=== PATIENT | male | born 1975 | race Asian ===

== ENCOUNTER 2022-02-28 08:19 | Outpatient (CLI) | payer BC, SELFPAY ==
[2022-02-28 18:36] LABS: Alanine Aminotransferase 30 U/L (6-50); Albumin Level 4.5 g/dL (3.5-5.1); Alkaline Phosphatase 78 U/L (38-126); Anion Gap 15 mmol/L (8-16); Aspartate Amino Transferase 77 U/L (17-59); Bilirubin,Total 0.8 mg/dL (0.2-1.3); Blood Urea Nitrogen 14 mg/dL (9-20); Calcium 9.2 mg/dL (8.4-10.2); Carbon Dioxide 25 mmol/L (22-30); Chloride 102 mmol/L (98-107); Cholesterol 199 mg/dL (0-200); Estimated Glomerular Filt Rate > 60; Glucose 95 mg/dL (65-110); HDL Direct 41 mg/dL; Potassium 4.1 mmol/L (3.4-5.0); Sodium 142 mmol/L (137-145); Triglycerides 129 mg/dL (<150)
[2022-02-28 18:46] LABS: Basophils Absolute Auto 0.1 K/mm3 (0.0-0.1); Basophils Percent Auto 1.3 % (0.2-1.2); Eosinophils Absolute Auto 0.3 K/mm3 (0-0.3); Hematocrit 45.9 % (42.0-52.0); Hemoglobin 14.8 g/dL (14.0-18.0); Immature Granulocyte Absolute 0.02 K/mm3 (0.00-0.031); Immature Granulocyte Percent A 0.3 % (0-0.5); Lymphocytes Absolute Auto 2.43 K/mm3 (0.9-3.2); Lymphocytes Percent Auto 40.1 % (18.3-44.2); Mean Corpuscular HGB Conc 32.2 g/dl (32-36); Mean Corpuscular Hemoglobin 30.1 pg (26-34); Mean Corpuscular Volume 93.5 fl (80-100); Mean Platelet Volume 9.1 fl (7.4-10.4); Monocytes Absolute Auto 0.8 K/mm3 (0.1-0.6); Monocytes Percent Auto 13.4 % (2.6-8.5); Neutrophils Absolute Auto 2.4 K/mm3 (1.3-6.7); Neutrophils Percent Auto 39.9 % (45.5-73.1); Platelet Count Result 297 k/mm3 (150-375); Red Blood Count 4.91 M/mm3 (4.6-6.20); Red Cell Distribution Width 13.7 % (11.5-14.5); White Blood Count 6.1 K/mm3 (4.5-10.0)
[2022-02-28 18:47] LABS: LDL Cholesterol Direct 107 mg/dL
== END 2022-02-28 08:20 | disposition home or self-care (01) ==
PROVIDERS: PCP Family Medicine; Visit Provider Physician Assistant
DX: Z00.00 Encounter for general adult medical examination without abnormal findings (principal); Z79.899 Other long term (current) drug therapy
CPT/HCPCS: 36415; 80053; 80061; 84443; 85025

== ENCOUNTER 2022-10-12 15:05 | Outpatient (CLI) | payer OTHER, SELFPAY ==
--- NOTE | ~2022-10-12 | US_ITS ---
. US scrotum doppler INDICATION: Right testicular swelling TECHNIQUE: Testicular sonogram utilizing grayscale and color Doppler FINDINGS: The testes are normal in size and appearance. No focal lesions are seen. The right testes measures 3.1 x 2.4 x 2.3 cm centimeters, and the left testis measures 3.2 x 2.9 x 2.2 cm cm. There is normal vascular flow to both testes. The right and left epididymides appear normal. There is a small left hydrocele. IMPRESSION: 1. Small left hydrocele Reviewed, dictated and finalized at location L. IMPRESSION: 1. Small left hydrocele
== END 2022-10-12 15:06 | disposition home or self-care (01) ==
LOC: ANHIMG 15:07
PROVIDERS: PCP Family Medicine; Visit Provider Family Medicine
DX: N50.89 Other specified disorders of the male genital organs (principal); N43.3 Hydrocele, unspecified
CPT/HCPCS: 76870; 93976

== ENCOUNTER 2024-06-30 06:12 | Day surgery (SDC) | payer OTHER, SELFPAY ==
--- NOTE | 2024-06-29 05:59 | P.PNAN_ITS ---
Anes - Initial Pre Proc Eval Procedure: Operation Date: 06/30/24 08:00 Proposed Procedures p Screening Colonoscopy - Ryan Lazo DO Date/Time: 06/29/24 05:59 Surgeon: Ryan Lazo DO Pre Op Diagnosis: Neoplasm Screening Patient Data Age: 48 Gender: M Height: 1.7 m Weight: 77.3 kg Allergies Allergy/AdvReac Type Severity Reaction Status Date / Time benzalkonium chloride Allergy Mild Rash Uncoded 06/30/24 06:52 Home Medications ?Medication ?Instructions ?Recorded ?Confirmed ?Type cetirizine 10 mg capsule (Zyrtec) 10 mg PO DAILY PRN allergy symptoms 01/16/22 06/30/24 History cyclosporine 0.05 % eye drops in a 1 drp EACH EYE Q12H 01/16/22 06/30/24 History dropperette (Restasis) tafluprost (PF) 0.0015 % eye drops 1 drp EACH EYE DAILY 01/16/22 06/30/24 History in a dropperette (Zioptan (PF)) hydroxychloroquine 200 mg tablet 200 mg PO DAILY #90 tabs 10/05/22 06/30/24 Rx (Plaquenil) triamcinolone acetonide 0.1 % 1 applic topical QID PRN eczema 10/05/22 06/30/24 Rx topical cream #80 grams propylene glycol 0.6 % eye drops 1 drp EACH EYE DAILY PRN dry eye(s) 04/02/24 06/30/24 History ([place] Tears) roflumilast 0.3 % topical cream 1 applic topical DAILY 04/02/24 06/30/24 History (Zoryve) montelukast 10 mg tablet 10 mg PO DAILY #90 tabs 04/18/24 06/30/24 Rx tacrolimus 0.1 % topical solution See Rx Instructions topical 04/18/24 06/30/24 Rx .COMPLEX #60 mL amoxicillin 500 mg capsule 500 mg PO Q8H #21 caps 05/14/24 06/10/24 Rx multivitamin (Daily Multi-Vitamin 1 tablet PO DAILY 06/10/24 06/30/24 History tablet) Patient hx anesthesia problems: none Family hx anesthesia problems: none Results Review: All pre-operative results and documents have been reviewed as part of the pre- operative evaluation. PMFSH Past Medical History Medical History (Updated 06/30/24 @ 07:01 by Mukul Delgado DO) Unspecified glaucoma Other seasonal allergic rhinitis Family History Family History Mother Diabetes mellitus Family history of hypercholesterolemia Hypertension Family history of cardiovascular disease Father Family history of hypercholesterolemia Hypertension Sibling Heart attack Social History Social History Smoking status: Never smoker Alcohol intake: current Substance use type: does not use Lack of Transportation: No Lack of Food: Never True Current Housing: I Have Housing Concerned About Future Housing: No Difficulty Paying Gas/Electric Bills: No Difficulty Paying for Meds: No Currently Unemployed: No Education: Master's Degree or Higher Difficulty w/ Childcare or Family Care: No Living arrangements: with family Catarina - [place] Final PreProcedure Day of Procedure 06/29/24 05:59 Patient weight: overweight Heart: regular rate and rhythm Lungs: clear to auscultation Airway: Mallampati scale class II Neurological: alert and oriented Last oral intake: >/= 8 hours ASA classification: II Emergent: no Anesthetic plan: proceed Anesthesia type and monitoring: general GIVS and standard monitoring Results Review: All pre-operative results and documents have been reviewed as part of the pre- operative evaluation. Informed Consent: The patient's anesthetic plan and its attendant risks and benefits were discussed with the patient/family/POA. Questions were solicited and answers provided to the satisfaction of the patient/family/POA.
--- OUTSIDE RECORDS SUMMARY | 2024-06-30 06:28 | XMS_ITS | Encounter Summary ---
Author Organization [facility] Address [address] [place] [address] Care Team Providers Care Conveyancer Name Role Phone Bernardo Amaro MD Primary Care Provider [phone] Encounter Details Date Type Department Care Team (Late st Contact Info) Description 07/25/2007 Outpatient Historical [facility] Internal Medicine - [place] [address] [place] [address] [place] [address] [place] [address] [place] [address] Social History Tobacco Use Types Packs/Day Years Used Date Smoking Tobacco: Never Assessed Sex and Gender Information Value Date Recorded Sex Assigned at Not on file Legal 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
--- OUTSIDE RECORDS SUMMARY | 2024-06-30 06:28 | XMS_ITS | Encounter Summary ---
Author Organization [facility] Address [address] [place] [address] Care Team Providers Care Pizza Cook Name Role Phone Bernardo Amaro MD Primary Care Provider [phone] Encounter Details Date Type Department Care Team (Late st Contact Info) Description 06/22/2005 Outpatient Historical [facility] Internal Medicine - [place] [address] [place] [address] [place] [address] [place] [address] [place] [address] Social History Tobacco Use Types Packs/Day Years Used Date Smoking Tobacco: Never Assessed Sex and Gender Information Value Date Recorded Sex Assigned at Not on file Legal 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
--- OUTSIDE RECORDS SUMMARY | 2024-06-30 06:28 | XMS_ITS | Encounter Summary ---
Author Organization [facility] Address [address] [place] [address] Care Team Providers Care Director Education Name Role Phone Bernardo Amaro MD Primary Care Provider [phone] Encounter Details Date Type Department Care Team (Late st Contact Info) Description 08/05/2003 Outpatient Historical [facility] Internal Medicine - [place] [address] [place] [address] [place] [address] [place] [address] [place] [address] Social History Tobacco Use Types Packs/Day Years Used Date Smoking Tobacco: Never Assessed Sex and Gender Information Value Date Recorded Sex Assigned at Not on file Legal Sex Male 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
--- OUTSIDE RECORDS SUMMARY | 2024-06-30 06:28 | XMS_ITS | Clinical Summary ---
Author Organization [facility] Address [address] [place] [address] Care Team Providers Care Preparer Making Department Name Role Phone Bernardo Amaro MD Primary Care Provider [phone] Allergies Active Allergy Reactions Criticality Noted Date Comments No Known Allergies 11/06/2002 Medications OMNICEF 300 MG CAP 2 Every Day 20.00 0 7 Active hydrocortisone (HYTONE) 2.5 % Topical Crea apply bid 1 lb 1.00 3 8 Active SINGULAIR 10 mg Oral Tab once daily 90.00 3 8 Active ANITA-D 24 HOUR 180-240 mg Oral Tb24 1 Every Day 90.00 3 8 Active pimecrolimus (ELIDEL) 1 % Topical CreaIndications: Routine general medical examination at a health care facility,Other and unspecified hyperlipidemia,A llergic rhinitis, cause unspecified,Alop ecia Apply to affected area 2 times daily. Active cycloSPORINE (RESTASIS) 0.05 % OP emulsionIndicati ons:Routine general medical examination at a health care facility,Other and unspecified hyperlipidemia,A llergic rhinitis, cause unspecified,Alop ecia Administer 1 Drop in both eyes 2 times daily. Active latanoprost (XALATAN) 0.005 % OP solutionIndicati ons:Routine general medical examination at a health care facility,Other and unspecified hyperlipidemia,A llergic rhinitis, cause unspecified,Alop ecia Administer 1 Drop in both eyes daily at bedtime. Active azelastine (ASTEPRO) 0.15 % (205.5 mcg) Both Nostril nasal sprayIndications :Routine general medical examination at a health care facility,Other and unspecified hyperlipidemia,A llergic rhinitis, cause unspecified,Alop ecia Administer in each nostril. Prn Active Active Problems Problem Noted Date Diagnosed Date Alopecia 01/24/2010 Open angle with borderline intraocular pressure 01/24/2010 Routine general medical exam ination at a health care facility 06/22/2005 Other and unspecified hyperlipidemia 06/22/2005 Family history of diabetes mellitus 06/22/2005 Family history of other cardiovascular diseases( V17.49) 06/22/2005 Overview (06/22/2010): cad lipids Updating IMO/ICD9 Code and Description Allergic rhinitis, cause unspecified 08/05/2003 Resolved Problems Problem Noted Date Diagnosed Date Resolved Date Other acne 07/25/2007 01/24/2010 Contact dermatitis and other eczema, due to unspecified cause 06/22/2005 01/24/2010 Acute frontal sinusitis 03/09/200412/28 Social History Tobacco Use Types Packs/Day Years Used Date Smoking Tobacco: Never Alcohol Use Standard Drinks/Week Comments No 0 (1 standard drink = 0.6 oz pur e alcohol) Sex and Gender Information Value Date Recorded Sex Assigned at Not on file 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 Gender Identity Not on file Sexual Orientation Not on file Last Filed Vital Signs Vital Sign Reading Time Taken Comments Blood Pressure 120/90 01/24/2010 11:09 AM CDT Pulse 54 01/24/2010 11:09 AM CDT Temperature - - Respiratory Rate - - Oxygen Saturation - - Inhaled Oxygen Concentration - - Weight 75.3 kg (166 lb) 01/24/2010 11:09 AM CDT Height 170.2 cm (5' 7 ) 01/24/2010 11:09 AM CDT Body Mass Index 26 01/24/2010 11:09 AM CDT Plan of Treatment Health Maintenance Due Date Last Done Comments DTAP/TDAP/TD VACCINES (1 - Tdap) 1992 HEPATITIS B VACCINES (1 of 3 - 19+ 3-dose series) 1992 COLORECTAL SCREENING 2018 Colorectal Cancer Screening 2018 FIT-DNA Q 3 years 2018 FIT/FOBT Q 1 year 2018 Flex Sig/CT Colonography Q 5 years 2018 INFLUENZA VACCINE (#1) 2023 ZOSTER VACCINE (1 of 2) 12/29/2023 PNEUMOCOCCAL VACCINE 0-64 YEARS Aged Out No longer eligible based on patient's age to complete this topic Care Teams Preparer Making Department Relationship Specialty Start Date End Date Bernardo Amaro MD PCP - General Internal Medicine 12/06/09
--- OUTSIDE RECORDS SUMMARY | 2024-06-30 06:28 | XMS_ITS | Encounter Summary ---
Author Organization [facility] Address [address] [place] [address] Care Team Providers Care Attendant [facility] Name Role Phone Bernardo Amaro MD Primary Care Provider [phone] Encounter Details Date Type Department Care Team (Late st Contact Info) Description 01/18/2006 Orders Only [facility] Internal Medicine - [place] [address] [place] [address] [place] [address] [place] [address] Social History Tobacco Use Types Packs/Day Years Used Date Smoking Tobacco: Never Assessed Sex and Gender Information Value Date Recorded Sex Assigned at Not on file Legal 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 LAST VISIT: 06/22/05 PCP: chirag. ALTERNATIVE PHONE NUMBER: [phone] WHO CALLED: Patient called. CURRENT ALLERGY LIST: NO KNOWN DRUG ALLERGY PHARMACY NUMBER: [phone] PROBLEMS: CONGESTION: Patient complains of sinus congestion, complains of head congestion, complains of nasalcongestion. COUGH:Patient complains of cough. yellow mucus SECTION 1: REQUESTED ACTION maty 01/18/06 at 08:39 am: MEDICATION REQUEST: Patient requests a refill. MEDICATIONS: FLONASE NASAL SUSPENSION 50 MCG/ACT, 2 sprays to each nostril qd, 3 Dispensed, 3 Fills, 90 Duration/Days Supply, status: CONTINUED, 06/22/2005. ANITA-D 24 HOUR ORAL TABLET 24 HR 180-240 MG, 1 Every Day, 90 Dispensed, 3 Fills, 90 Duration/Days Supply, status: NEW PRESCRIPTION, 06/22/2005. SINGULAIR ORAL TABLET 10 MG, 1 Every Hour, 90 Dispensed, 3 Fills, status: DISCONTINUED, 06/22/2005,Comment: faxed to [facility] 11.21. pt would like a refill for his Singulair SECTION 2: DOCTOR`S RESPONSE: kal 01/18/06 at 08:44 am Refill now with 3 additional refills.for all FINAL ACTION: dulce 01/18/06 at 11:43 am Called pharmacy at 01/18/06 at 11:43 am. [facility], Electronically Signed by: Mendy Lassiter on December documented in this encounter Plan of Treatment Not on file documented as of this encounter Visit Diagnoses Not on filedocumented in this encounter Care Teams Attendant [facility] Relationship Specialty Start Date End Date Bernardo Amaro MD PCP - General Internal Medicine 12/06/09 documented as of this encounter
--- OUTSIDE RECORDS SUMMARY | 2024-06-30 06:28 | XMS_ITS | Encounter Summary ---
Author Organization [facility] Address [address] [place] [address] Care Team Providers Care Shift Superintendent Caustic Cresylate Name Role Phone Bernardo Amaro MD Primary Care Provider [phone] Encounter Details Date Type Department Care Team (Late st Contact Info) Description 06/23/2006 Outpatient Historical [facility] Internal Medicine - [place] [address] [place] [address] David Del Toro MD [address] [facility] [address] [place] [address] Social History Tobacco Use Types Packs/Day Years Used Date Smoking Tobacco: Never Assessed Sex and Gender Information Value Date Recorded Sex Assigned at Not on file Legal Sex Male 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 Gender Identity Not on file Sexual Orientation Not on file documented as of this encounter Last Filed Vital Signs Vital Sign Reading Time Taken Comments Blood Pressure 122/84 06/23/2006 8:45 AM NEWS OPERATIONS MANAGER Pulse 76 06/23/2006 8:45 AM NEWS OPERATIONS MANAGER Temperature - - Respiratory Rate - - Oxygen Saturation - - Inhaled Oxygen Concentration - - Weight 75.3 kg (166 lb) 06/23/2006 8:45 AM NEWS OPERATIONS MANAGER Height - - Body Mass Index - - documented in this encounter Plan of Treatment Not on file documented as of this encounter Visit Diagnoses Not on filedocumented in this encounter Care Teams Shift Superintendent Caustic Cresylate Relationship Specialty Start Date End Date Bernardo Amaro MD PCP - General Internal Medicine 12/06/09 documented as of this encounter
--- OUTSIDE RECORDS SUMMARY | 2024-06-30 06:28 | XMS_ITS | Encounter Summary ---
Author Organization [facility] Address [address] [place] [address] Care Team Providers Care Stripper [employer]ed [employer] Boards Name Role Phone Bernardo Amaro MD Primary Care Provider [phone] Encounter Details Date Type Department Care Team (Late st Contact Info) Description 03/09/2004 Outpatient Historical [facility] Internal Medicine - [place] [address] [place] [address] [place] [address] [place] [address] Social History Tobacco Use Types Packs/Day Years Used Date Smoking Tobacco: Never Assessed Sex and Gender Information Value Date Recorded Sex Assigned at Not on file Legal 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 Gender Identity Not on file Sexual Orientation Not on file documented as of this encounter Last Filed Vital Signs Vital Sign Reading Time Taken Comments Blood Pressure 112/68 03/09/2004 3:45 PM CDT Pulse 66 03/09/2004 3:45 PM CDT Temperature - - Respiratory Rate - - Oxygen Saturation - - Inhaled Oxygen Concentration - - Weight 74.8 kg (165 lb) 03/09/2004 3:45 PM CDT Height - - Body Mass Index - - documented in this encounter Plan of Treatment Not on file documented as of this encounter Visit Diagnoses Not on filedocumented in this encounter Care Teams Stripper Printed Circuit Boards Relationship Specialty Start Date End Date Bernardo Amaro MD PCP - General Internal Medicine 12/06/09 documented as of this encounter
--- OUTSIDE RECORDS SUMMARY | 2024-06-30 06:28 | XMS_ITS | Encounter Summary ---
Author Organization [facility] Address [address] [place] [address] Care Team Providers Care Leaf Binner Name Role Phone Bernardo Amaro MD Primary Care Provider [phone] Encounter Details Date Type Department Care Team (Latest Contact Info) Description 07/25/2007 Outpatient Historical [facility] Internal Medicine - [place] [address] [place] [address] Blake Amaro Routine General Medical Examination at a Health Care Facility Social History Tobacco Use Types Packs/Day Years Used Date Smoking Tobacco: Never Assessed Sex and Gender Information Value Date Recorded Sex Assigned at Not on file Legal Sex Male 3:29 AM PHP ARCHITECT Gender Identity Not on file Sexual Orientation Not on file documented as of this encounter Plan of Treatment Not on file documented as of this encounter Procedures Procedure Name Priority Date/Time Associated Diagnosis Comments CBC WITH DIFFERENTIAL Routine 07/25/2007 8:59 AM PHP ARCHITECT LIPID PANEL Routine 07/25/2007 8:59 AM PHP ARCHITECT COMPREHENSIVE METABOLIC PANEL Routine 07/25/2007 8:59 AM PHP ARCHITECT documented in this encounter Results * (ABNORMAL) CBC WITH DIFFERENTIAL (07/25/2007 8:59 AM PHP ARCHITECT) RBC 4.95 4.50 - 5.40 M/uL [facility] MCHC 33.3 31.5 - 35.5 % [facility] MCV 89.3 82.0 - 99.0 fL [facility] PLATELETS 354(H) 140 - 350 K/uL [facility] HEMOGLOBIN 14.7 13.6 - 16.5 g/dL [facility] RDW 13.3 11.5 - 14.5 % [facility] WBC 15.3(H) 4.0 - 9.8 K/uL [facility] MCH 29.7 27.2 - 32.6 pg [facility] MPV 9.5 9.3 - 12.4 fL [facility] HEMATOCRIT 44.2 40.0 - 48.0 % [facility] RDW-STDEV 43.2 37.1 - 48.7 fL [facility] MONOCYTES 10 3 - 13 % [facility] MONOCYTE ABSOLUTE 1.52(H) 0.10 - 1.30 K/uL [facility] NEUTROPHILS 70 45 - 70 % [facility] [place] NEUTROPHIL ABSOLUTE 10.64(H) 1.90 - 7.00 K/uL [facility] EOSINOPHILS 2 0 - 7 % [facility] [place] [facility] EOSINOPHIL ABSOLUTE 0.37 0.00 - 0.70 K/uL [facility] LYMPHOCYTES 18 16 - 45 % [facility] [place] [facility] LYMPHOCYTE ABSOLUTE 2.73 0.70 - 4.50 K/uL [facility] BASOPHILS 0 0 - 2 % [facility] BASOPHILS ABSOLUTE 0.03 0.00 - 0.20 K/uL [facility] Blood specimen (specimen) 07/25/2007 8:59 AM PHP ARCHITECT 07/25/2007 11:26 AM PHP ARCHITECT [facility] HEMATOLOGY ORDERABLES Edited INTERFACE SYSTEM Refer to clinic/hospital department [facility] [address] [place] [address] * (ABNORMAL) COMPREHENSIVE METABOLIC PANEL (07/25/2007 8:59 AM PHP ARCHITECT) BUN 11 6 - 20 mg/dL [facility] CALCIUM 9.3 8.4 - 10.2 mg/dL [facility] CHLORIDE 98 96 - 108 mmol/L [facility] ALBUMIN 4.2 3.4 - 4.8 g/dL [facility] CREATININE 0.97 0.67 - 1.17 mg/dL [facility] SODIUM 134(L) 135 - 145 mmol/L [facility] ALT 11 0 - 41 U/L [facility] ALKALINE PHOSPHATASE 75 40 - 129 U/L [facility] BILIRUBIN TOTAL 0.3 0.2 - 1.0 mg/dL [facility] CO2 24 22 - 30 mmol/L [facility] TOTAL PROTEIN 8.5 6.3 - 8.6 g/dL [facility] POTASSIUM 3.8 3.5 - 4.9 mmol/L [facility] GLUCOSE 83 65 - 99 mg/dL [facility] AST 21 12 - 38 U/L [facility] GFR, >60 >=60 mL/min/1. 7 sq meter [facility] GFR >60 >=60 mL/min/1. 7 sq meter [facility] Comment: Estimated GFR rate interpretative information for both Americans and non- Americans is available on the [facility] Intranet at: [email or web address] Select: Lab Policies and Procedures Select: Reference Ranges - GFR Blood specimen (specimen) 07/25/2007 8:59 AM PHP ARCHITECT 07/25/2007 11:26 AM PHP ARCHITECT Blake Amaro CHEMISTRY ORDERABLES Edited [facility] [address] [place] [address] * (ABNORMAL) LIPID PANEL (07/25/2007 8:59 AM PHP ARCHITECT) CHOLESTEROL 186 100 - 199 mg/dL [facility] TRIGLYCERIDE 153(H) 10 - 149 mg/dL [facility] CHOL/HDL RATIO 4.1 2.0 - 5.0 [facility] HDL 45 40 - 59 mg/dL [facility] LDL CALCULATED 110(H) <=99 mg/dL [facility] LIPID PANEL COMMENT See Below [facility] Comment: The adult ATP and pediatric NCEP classifications for lipids are available on the [facility] Intranet at: [email or web address] Select: Lab Policies and Procedures,Current Select: Lipid Panel Interpretation Blood specimen (specimen) 07/25/2007 8:59 AM PHP ARCHITECT 07/25/2007 11:26 AM PHP ARCHITECT Blake Amaro CHEMISTRY ORDERABLES Edited [facility] [address] [place] [address] documented in this encounter Visit Diagnoses Diagnosis Routine general medical examination at a health care facility documented in this encounter Care Teams Leaf Binner Relationship Specialty Start Date End Date Bernardo Amaro MD PCP - General Internal Medicine 12/06/09 documented as of this encounter
--- OUTSIDE RECORDS SUMMARY | 2024-06-30 06:28 | XMS_ITS | Encounter Summary ---
Author Organization [facility] Address [address] [place] [address] Care Team Providers Care Career Law Clerk Name Role Phone Bernardo Amaro MD Primary Care Provider [phone] Encounter Details Date Type Department Care Team (Late st Contact Info) Description 06/23/2006 Orders Only [facility] Internal Medicine - [place] [address] [place] [address] David Del Toro MD [address] [facility] [address] [place] [address] Social History Tobacco Use Types Packs/Day Years Used Date Smoking Tobacco: Never Assessed Sex and Gender Information Value Date Recorded Sex Assigned at Not on file 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 MEDICATIONS: Medication list current. CHIEF COMPLAINT Patient complains of sinus congestion. 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 No major weight gain or loss. No malaise, chills, fever, diaphoresis.. ENT: See HISTORY OF PRESENT ILLNESS. ENDOCRINE: No heat or cold intolerance, no excessive thirst.. CARDIAC: No chest pain, palpitations, orthopnea, dyspnea on exertion, or paroxysmal nocturnal dyspnea.. RESPIRATORY: No dyspnea, cough, hemoptysis or wheezing.. : No dysuria or hematuria.. GI: No abdominal pain, nausea, vomiting, diarrhea, constipation, melena, or hematochezia.. PHYSICAL EXAMINATION: CONSTITUTIONAL: GENERAL APPEARANCE: Healthy appearing patient in no distress. EYES: CONJUNCTIVAE/LIDS: Conjunctivae and lids appear normal. PUPILS: Pupils equal and normally reactive to light and accommodation. EARS, NOSE, MOUTH AND THROAT: EXTERNAL/EARS AND NOSE: Overall appearance normal with no scars, lesions or masses. EARS: Tympanic membranes shiny without retraction. Canals unremarkable. Hearing grossly normal. NOSE (AND SINUS): TURBINATES INFLAMED BILATERALLY, TURBINATES RED BILATERALLY, TURBINATES SWOLLEN BILATERALLY. ORAL: Inspection of gums, lips, palate, and teeth normal. No scars, lesions, or masses. Oral mucosaunremarkable with non-inflamed posterior pharynx. NECK/THYROID: Trachea midline. No thyroid enlargement, tenderness, or mass. No supraclavicular or cervical adenopathy. RESPIRATORY: Clear to auscultation and percussion. Normal respiratory effort. ASSESSMENT/PLAN: 461.1-ACUTE SINUSITIS MEDICATIONS: OMNICEF ORAL CAPSULE CONVENTIONAL 300 MG, 2 Every Day, 20 Dispensed, status: NEW PRESCRIPTION, 06/23/2006. FLONASE NASAL SUSPENSION 50 MCG/ACT, 2 sprays to each nostril qd, 3 Dispensed, 3 Fills, 90 Duration/Days Supply, status: CONTINUED, 06/23/2006. SINGULAIR ORAL TABLET 10 MG, 1 Every Hour, 90 Dispensed, status: CONTINUED, 06/23/2006. GAGE-D 24 HOUR ORAL TABLET 24 HR 180-240 MG, 1 Every Day, 90 Dispensed, 3 Fills, 90 Duration/Days Supply, status: CONTINUED, 06/23/2006. HYDROCORTISONE EXTERNAL CREAME 2.5 %, apply bid 1 lb, 1 Dispensed, 3 Fills, status: CONTINUED, 06/23/2006. RETURN VISIT : Patient is to return on an as needed basis. Return as planned. Electronically Signed by: David Del Toro MD on Friday, June 23, 2006 documented in this encounter Plan of Treatment Not on file documented as of this encounter Visit Diagnoses Not on filedocumented in this encounter Care Teams Career Law Clerk Relationship Specialty Start Date End Date Bernardo Amaro MD PCP - General Internal Medicine 12/06/09 documented as of this encounter
--- OUTSIDE RECORDS SUMMARY | 2024-06-30 06:28 | XMS_ITS | Encounter Summary ---
Author Organization [facility] Address [address] [place] [address] Care Team Providers Care Mercantile Reporter Name Role Phone Bernardo Amaro MD Primary Care Provider [phone] Encounter Details Date Type Department Care Team (Late st Contact Info) Description 07/25/2007 Outpatient Historical [facility] Internal Medicine - [place] [address] [place] [address] [place] [address] [place] [address] [place] [address] Social History Tobacco Use Types Packs/Day Years Used Date Smoking Tobacco: Never Assessed Sex and Gender Information Value Date Recorded Sex Assigned at Not on file 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
--- OUTSIDE RECORDS SUMMARY | 2024-06-30 06:28 | XMS_ITS | Encounter Summary ---
Author Organization [facility] Address [address] [place] [address] Care Team Providers Care Envelope Sealer Operator Name Role Phone Bernardo Amaro MD Primary Care Provider [phone] Encounter Details Date Type Department Care Team (Late st Contact Info) Description 08/14/[address] 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
--- OUTSIDE RECORDS SUMMARY | 2024-06-30 06:28 | XMS_ITS | Encounter Summary ---
Author Organization [facility] Address [address] [place] [address] Care Team Providers Care On Air Announcer Name Role Phone Bernardo Amaro MD Primary Care Provider [phone] Encounter Details Date Type Department Care Team (Late st Contact Info) Description 06/22/2005 Outpatient Historical [facility] Internal Medicine - [place] [address] [place] [address] [place] [address] [place] [address] [place] [address] Social History Tobacco Use Types Packs/Day Years Used Date Smoking Tobacco: Never Assessed Sex and Gender Information Value Date Recorded Sex Assigned at Not on file 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
--- OUTSIDE RECORDS SUMMARY | 2024-06-30 06:28 | XMS_ITS | Encounter Summary ---
Author Organization [facility] Address [address] [place] [address] Care Team Providers Care Rotor Balancer Name Role Phone Bernardo Amaro MD Primary Care Provider [phone] Encounter Details Date Type Department Care Team (Late st Contact Info) Description 10/10/1999 Outpatient Historical [facility] Internal Medicine - [place] [address] [place] [address] [place] [address] [place] [address] [place] [address] Social History Tobacco Use Types Packs/Day Years Used Date Smoking Tobacco: Never Assessed Sex and Gender Information Value Date Recorded Sex Assigned at Not on file 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
--- OUTSIDE RECORDS SUMMARY | 2024-06-30 06:28 | XMS_ITS | Encounter Summary ---
Author Organization [facility] Address [address] [place] [address] Care Team Providers Care Administrative Clerk Name Role Phone Bernardo Amaro MD Primary Care Provider [phone] Encounter Details Date Type Department Care Team (Late st Contact Info) Description 07/25/2007 Orders Only [facility] Internal Medicine - [place] [address] [place] [address] [place] [address] [place] [place] [address] Social History Tobacco Use Types Packs/Day Years Used Date Smoking Tobacco: Never Assessed Sex and Gender Information Value Date Recorded Sex Assigned at Not on file 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 TOBACCO USE Patient does not currently use tobacco. MEDICATIONS: Medication list current. CHIEF COMPLAINT Seen for a preventive examination. sinus infection rash on face AW HISTORY: HISTORY OF PRESENT ILLNESS: UPPER RESPIRATORY: Onset is gradual. The upper respiratory symptoms began approximately 3 days ago.Symptoms include cough, sputum is yellow, symptoms include sinus congestion, symptoms of sore throat, symptoms include nasal congestion, symptoms include nasal discharge, no symptoms of wheezing. ROS: GENERAL: Normal activity and energy level, no change in appetite. No major weight gain or loss. No malaise, chills, fever, diaphoresis.. ENT: No hearing loss, epistaxis, hoarseness or dysphagia. No sinus congestion.. ENDOCRINE: No heat or cold intolerance, no excessive thirst.. CARDIAC: No chest pain, palpitations, orthopnea, dyspnea on exertion, or paroxysmal nocturnal dyspnea.. RESPIRATORY: No dyspnea, cough, hemoptysis or wheezing.. : No dysuria or hematuria.. GI: No abdominal pain, nausea, vomiting, diarrhea, constipation, melena, or hematochezia.. PHYSICAL EXAMINATION: CONSTITUTIONAL: GENERAL APPEARANCE: Healthy appearing patient in no distress. NECK/THYROID: Trachea midline. No thyroid enlargement, tenderness, or mass. No supraclavicular or cervical adenopathy. RESPIRATORY: Clear to auscultation and percussion. Normal respiratory effort. CARDIOVASCULAR: CARDIAC: Regular rhythm. No murmurs, rubs, or gallops. ARTERIAL: No aortic bruits. EDEMA/VARICOSITIES OF EXTREMITIES: No edema or varicosities. GASTROINTESTINAL: ABDOMEN: Soft, non-tender, without masses. Bowel sounds active. LIVER/SPLEEN/KIDNEY: No hepatosplenomegaly, tenderness or nodularity. Kidneys not palpable. GENITOURINARY: SCROTUM/CONTENTS: Normal in appearance with no hydrocele, spermatocele, tenderness of cord, or testicular mass. ASSESSMENT/PLAN: 461.1-ACUTE SINUSITIS MEDICATIONS: AUGMENTIN ORAL TABLET 875-125 MG, 1 with meals B.I.D., 40 Dispensed, status: NEW PRESCRIPTION, 07/25/2007. V70.0-ROUTINE GENERAL MEDICAL EXAMINATION LAB ORDERS: Order number: [id number] Test Ordered: CBC W/ DIFFERENTIAL 3150 Order number: [id number] Test Ordered: COMPREHENSIVE METABOLIC PANEL & GFR 1112 Order number: [id number] Test Ordered: LIPID PANEL 1078 706.1-ACNE(COMEDONE) MEDICATIONS: METROCREAM EXTERNAL CREAME 0.75 % GRAMS, apply bid, 60 Dispensed, 1 Fills, status: NEW PRESCRIPTION, 07/25/2007. HEALTH MAINTENANCE: DISCUSSED SMOKING: no. LAST TD: no SUBSTANCE ABUSE DISCUSSED: no. INJURY PREVENTION DISCUSSED: pos. DIET AND EXERCISE DISCUSSED: pos. DIABETIC EYE EXAM: . DIABETIC FOOT EXAM: 07-25-2007 LAST FLU VACCINE: PREVENTIVE COUNSELING The patient was counseled regarding diet, regular sustained exercise for at least 30 minutes 3-4 times per week. Electronically Signed by: Talia Amaro MD on June documented in this encounter Plan of Treatment Not on file documented as of this encounter Visit Diagnoses Not on filedocumented in this encounter Care Teams Administrative Clerk Relationship Specialty Start Date End Date Bernardo Amaro MD PCP - General Internal Medicine 12/06/09 documented as of this encounter
--- OUTSIDE RECORDS SUMMARY | 2024-06-30 06:28 | XMS_ITS | Encounter Summary ---
Author Organization [facility] Address [address] [place] [address] Care Team Providers Care Gate Mortiser Operator Name Role Phone Bernardo Amaro MD Primary Care Provider [phone] Encounter Details Date Type Department Care Team (Late st Contact Info) Description 09/20/2001 Outpatient Historical [facility] Internal Medicine - [place] [address] [place] [address] [place] [address] [place] [address] [place] [address] Social History Tobacco Use Types Packs/Day Years Used Date Smoking Tobacco: Never Assessed Sex and Gender Information Value Date Recorded Sex Assigned at Not on file 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
--- OUTSIDE RECORDS SUMMARY | 2024-06-30 06:28 | XMS_ITS | Encounter Summary ---
Author Organization [facility] Address [address] [place] [address] Care Team Providers Care Thermograph Operator Name Role Phone Bernardo Amaro MD Primary Care Provider Encounter Details Date Type Department Care Team (Late st Contact Info) Description 07/25/2007 Outpatient Historical [facility] Internal Medicine - [place] [address] [place] [address] [place] [address] [place] [address] [place] [address] Social History Tobacco Use Types Packs/Day Years Used Date Smoking Tobacco: Never Assessed Sex and Gender Information Value Date Recorded Sex Assigned at Not on file 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
--- OUTSIDE RECORDS SUMMARY | 2024-06-30 06:28 | XMS_ITS | Encounter Summary ---
Author Organization [facility] Address [address] [place] [address] Care Team Providers Care Filling Station Attendant Name Role Phone Bernardo Amaro MD Primary Care Provider [phone] Encounter Details Date Type Department Care Team (Late st Contact Info) Description 08/05/2003 Outpatient Historical [facility] Internal Medicine - [place] [address] [place] [address] [place] [address] [place] [address] [place] [address] Social History Tobacco Use Types Packs/Day Years Used Date Smoking Tobacco: Never Assessed Sex and Gender Information Value Date Recorded Sex Assigned at Not on file 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
--- OUTSIDE RECORDS SUMMARY | 2024-06-30 06:28 | XMS_ITS | Encounter Summary ---
Author Organization [facility] Address [address] [place] [address] Care Team Providers Care Fleet Service Manager Name Role Phone Bernardo Amaro MD Primary Care Provider [phone] Encounter Details Date Type Department Care Team (Late st Contact Info) Description 02/12/2007 Orders Only [facility] Internal Medicine - [place] [address] [place] [address] [place] [address] [place] [address] Social History Tobacco Use Types Packs/Day Years Used Date Smoking Tobacco: Never Assessed Sex and Gender Information Value Date Recorded Sex Assigned at Not on file 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
--- OUTSIDE RECORDS SUMMARY | 2024-06-30 06:28 | XMS_ITS | Encounter Summary ---
Author Organization [facility] Address [address] [place] [address] Care Team Providers Care Recreation Teacher Name Role Phone Bernardo Amaro MD Primary Care Provider [phone] Encounter Details Date Type Department Care Team (Late st Contact Info) Description 09/24/2000 Outpatient Historical [facility] Internal Medicine - [place] [address] [place] [address] [place] [address] [place] [address] [place] [address] Social History Tobacco Use Types Packs/Day Years Used Date Smoking Tobacco: Never Assessed Sex and Gender Information Value Date Recorded Sex Assigned at Not on file 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
--- OUTSIDE RECORDS SUMMARY | 2024-06-30 06:28 | XMS_ITS | CONTINUITY OF CARE DOCUMENT ---
Author Name deidraurvashi андрейshannan Address Unknown Organization [facility] Address [address] [facility] [address] [place] [address] Phone [phone] Care Team Providers Care Welfare Visitor Name Role Phone Bennie MOFFETT, Carlo Unavailable TITA GUTIERREZ MD Unavailable TITA GUTIERREZ MD Unavailable [phone] PROBLEMS Condition Status Date Provider Notes Cardiovascular screening active Marleny sultana INSURANCE PROVIDERS Payer name Policy type / Coverage type [place] red democrat ID [id number] Common Interest Commun[employer] insurance [employer] 10 [id number] TREATMENT PLAN Date Name CT, Coronary Calcium Score CT, Coronary Calcium Score HISTORY OF PROCEDURES Procedure Date Procedure Name Provider Procedure Notes S tatus CT- Coronary CA score Carlo Avery MD completed
[2024-06-30 07:06] VITALS: BMI 27.2
[2024-06-30 07:07] VITALS: BP 116/102; PULSE 86; RESP 15; TEMP 36.8; O2SAT 100
[2024-06-30] MEDS: LACTATED RINGERS 1,000 ML 150 ML IV CONT (07:11)
--- NOTE | 2024-06-30 07:54 | PM.IMHP ---
H&P: HPI History of Present Illness Date/Time: 06/30/24 07:54 Chief Complaint: Screenign for colorectal cancer Narrative: 48 yo man presents for first colonoscopy. Denies hematochezia or melena. Denies fam hx colon cancer. Review of Systems Review of Systems: All systems reviewed & are unremarkable except as noted in HPI and below Constitutional: Constitutional: Denies chills, Denies fever(s), Denies headache(s) and Denies weight loss Eyes: Eyes: Denies change in vision ENT: Denies dizziness, Denies headache(s), Denies neck mass and Denies throat swelling Cardiovascular: Cardiovascular: Denies chest pain, Denies lightheadedness and Denies dyspnea Respiratory: Respiratory: Denies cough, Denies dyspnea and Denies wheezing Gastrointestinal: Gastrointestinal: Denies abdominal pain, Denies change in bowel habits, Denies nausea and Denies vomiting Genitourinary: Genitourinary: Denies hematuria and Denies dysuria Musculoskeletal: Musculoskeletal: Reports as per HPI Integumentary/Breasts: Skin/Breast: Reports as per HPI Neurologic: Denies dizziness and Denies headache(s) Allergic/Immunologic: Allergic/Immunologic: Denies throat swelling and Denies wheezing [facility] Past Medical History Medical History (Updated 06/30/24 @ 07:01 by Mukul Delgado DO) Unspecified glaucoma Other seasonal allergic rhinitis Family History Family History Mother Diabetes mellitus Family history of hypercholesterolemia Hypertension Family history of cardiovascular disease Father Family history of hypercholesterolemia Hypertension Sibling Heart attack Social History Social History Smoking status: Never smoker Alcohol intake: current Substance use type: does not use Lack of Transportation: No Lack of Food: Never True Current Housing: I Have Housing Concerned About Future Housing: No Difficulty Paying Gas/Electric Bills: No Difficulty Paying for Meds: No Currently Unemployed: No Education: Master's Degree or Higher Difficulty w/ Childcare or Family Care: No Living arrangements: with family Meds Home Medications and Allergies Home Medications ?Medication ?Instructions ?Recorded ?Confirmed ?Type cetirizine 10 mg capsule (Zyrtec) 10 mg PO DAILY PRN allergy symptoms 01/16/22 06/30/24 History cyclosporine 0.05 % eye drops in a 1 drp EACH EYE Q12H 01/16/22 06/30/24 History dropperette (Restasis) tafluprost (PF) 0.0015 % eye drops 1 drp EACH EYE DAILY 01/16/22 06/30/24 History in a dropperette (Zioptan (PF)) hydroxychloroquine 200 mg tablet 200 mg PO DAILY #90 tabs 10/05/22 06/30/24 Rx (Plaquenil) triamcinolone acetonide 0.1 % 1 applic topical QID PRN eczema 10/05/22 06/30/24 Rx topical cream #80 grams propylene glycol 0.6 % eye drops 1 drp EACH EYE DAILY PRN dry eye(s) 04/02/24 06/30/24 History ([place] Tears) roflumilast 0.3 % topical cream 1 applic topical DAILY 04/02/24 06/30/24 History (Zoryve) montelukast 10 mg tablet 10 mg PO DAILY #90 tabs 04/18/24 06/30/24 Rx tacrolimus 0.1 % topical solution See Rx Instructions topical 04/18/24 06/30/24 Rx .COMPLEX #60 mL amoxicillin 500 mg capsule 500 mg PO Q8H #21 caps 05/14/24 06/10/24 Rx multivitamin (Daily Multi-Vitamin 1 tablet PO DAILY 06/10/24 06/30/24 History tablet) Allergies Allergy/AdvReac Type Severity Reaction Status Date / Time benzalkonium chloride Allergy Mild Rash Uncoded 06/30/24 06:52 Vital Signs Vital Signs - 24 hr 06/30/24 07:07 Temperature 98.3 F Pulse Rate 86 Respiratory Rate 15 Blood Pressure 116/102 H Pulse Oximetry 100 Oxygen Delivery Room Air Exam Const: General: no acute distress and alert Orientation/consciousness: patient oriented x3 HENMT: Head: normocephalic and atraumatic Ears: hearing grossly normal bilaterally Face/Nose/Sinus: Normal nares present Mouth: Yes Normal oral and palatal mucosa present Eyes: Periorbital: periorbital findings normal Sclera: sclerae normal EOM: EOMs intact bilaterally Neck: Neck: normal visual inspection, no lymphadenopathy and trachea midline Chest: Chest palpation & inspection: normal inspection of the chest Resp: Effort & Inspection: normal respiratory effort Auscultation: clear to auscultation bilaterally Cardio: Jugular venous distension: no JVD Rate: regular rate Rhythm: regular rhythm Heart sounds: S1 normal heart sound present and S2 normal heart sound present Peripheral pulses: Peripheral pulses 2+ throughout GI: Inspection: normal to inspection GI Palp: Yes Soft to palpation, No Tenderness to palpation present (GI), No Guarding due to palpation present (GI) and No Rebound tenderness present Percussion: Yes normal to percussion Auscultation: normal bowel sounds : General: Yes no CVA tenderness Back/Spine/Pelvis: Back: no CVA tenderness Neuro: General: patient oriented x3, no focal motor deficits and CN's II-XI intact bilaterally Cognition (Neuro): normal cognition Speech: normal speech Motor exam (neuro): 5/5 motor strength present throughout Extrem: General: capillary refill normal and no clubbing, cyanosis or edema Assessment and Plan Assessment and plan (1) Colon cancer screening: Code(s): Z12.11 - Encounter for screening for malignant neoplasm of colon Status: Acute Assessment and Plan: I have recommended colonoscopy. I have discussed the procedure, risks, benefits, and alternatives. Questions were answered. Patient is agreeable to proceed.
[2024-06-30 08:19] VITALS: BP 108/82; PULSE 87; RESP 16; O2SAT 99
[2024-06-30 08:29] VITALS: BP 118/91; PULSE 90; RESP 18; O2SAT 99
[2024-06-30 08:39] VITALS: BP 116/90; PULSE 71; RESP 18; O2SAT 100
--- NOTE | 2024-06-30 08:58 | WPDANESPN ---
Anes - Prog Note Post-Op Date/Time: 06/30/24 08:58 Cardiovascular status: normal Respiratory status: normal Airway patency: baseline Mental status: baseline Post-Op hydration status: normal Vital Signs: Last Vital Signs Temp 36.8 C 06/30/24 07:07 Pulse 71 06/30/24 08:39 Resp 18 06/30/24 08:39 BP 116/90 06/30/24 08:39 Pulse Ox 100 06/30/24 08:39 O2 Del Method Room Air 06/30/24 08:39 Pain Score (VAS): 0 I/O: Intake & Output 06/29/24 06/30/24 06/30/24 23:59 07:59 15:59 Intake Total 250 Balance 250 Post-procedural complaints: none Patient Feedback: Patient satisfied with anesthetic care. Other Findings: Patient vital signs back to baseline. Patient denies nausea and vomiting. Patient's pain under control. Patient OK for discharge.
== END 2024-06-30 08:48 | disposition home or self-care (01) ==
PROVIDERS: PCP Family Medicine; Visit Provider Surgery
PROC: 0DJD8ZZ Inspection of Lower Intestinal Tract, Via Natural or Artificial Opening Endoscopic (ICD-10-PCS; CPT 45378; principal; 2024-06-30 08:00)
DX: Z12.11 Encounter for screening for malignant neoplasm of colon (principal); K63.5 Polyp of colon
CPT/HCPCS: 45380